=== PATIENT | male | born 1980 | race Caucasian/White ===

== ENCOUNTER 2017-03-07 22:19 | Emergency (ER) | payer OTHER ==
[~2017-03-07] VITALS: Ht 180.3 cm; Wt 76.7 kg
[~2017-03-07 22:19] MED LIST: KEFLEX500 MG PO; LORTAB 5-325 M1 EACH PO; PERCOCET 5/31 TABLET PO; TORADOL10 MG PO
[2017-03-07 23:11] LABS: HEMATOCRIT 46.2 % (38.0-50.0); HEMOGLOBIN 15.5 G/DL (12.5-16.6); MCH 29.7 PG (29.0-34.0); MCHC 33.5 G/DL (30.0-36.0); MCV 88.5 FL (86-99); PLATELET COUNT 175 K/uL (156-360); RBC DIS.WIDTH-CV 14.3 % (11.8-14.6); RBC DIS.WIDTH-SD 46.4 % (39-53); RED BLOOD COUNT 5.22 M/uL (4.00-5.50); WHITE BLOOD COUNT 15.5 K/uL (4.1-10.2)
[2017-03-07 23:19] LABS: ALBUMIN 4.1 g/dL (3.2-4.8)
[2017-03-07 23:20] LABS: CHLORIDE 107 mEq/L (99-109); POTASSIUM 3.9 mEq/L (3.7-5.4); SODIUM 137 mEq/L (136-147)
[2017-03-07 23:22] LABS: GLUCOSE 134 mg/dL (70-99); TOTAL PROTEIN 7.4 g/dL (6.4-8.3)
[2017-03-07 23:24] LABS: TOTAL BILIRUBIN 0.2 mg/dL (0.0-1.0)
[2017-03-07 23:25] LABS: ALKALINE PHOSPHATASE 100 IU/L (3-129)
[2017-03-07 23:26] LABS: CREATININE 1.1 mg/dL (0.6-1.3); GFR ESTIMATE (CALCULATED) > 59 mL/min/ (58.99-99999)
[2017-03-07 23:27] LABS: AST (GOT) 21 IU/L (2-34); UREA NITROGEN (BUN) 18 mg/dL (9-23)
[2017-03-07 23:28] LABS: ALT (GPT) 25 IU/L (3-49)
[2017-03-08 03:10] VITALS: BP 129/84
== END 2017-03-08 03:11 | disposition short-term general hospital (02) ==
LOC: EME 22:19
PROVIDERS: Emergency Medicine
DX: T23.302A Burn of third degree of left hand, unspecified site, initial encounter (principal); T23.301A Burn of third degree of right hand, unspecified site, initial encounter; F17.200 Nicotine dependence, unspecified, uncomplicated; T31.0 Burns involving less than 10% of body surface; X08.8XXA Exposure to other specified smoke, fire and flames, initial encounter; Z88.5 Allergy status to narcotic agent
CPT/HCPCS: 80053; 85027; 99281; 99285; J1885; J7030; J7050